=== PATIENT | female | born 2000 | race Two or more races ===

== ENCOUNTER → 2025-03-21 | Outpatient (CLI) | payer OTHER, SELFPAY ==
--- NOTE | 2025-03-21 | XR_ITS ---
Examination: Knee, right , 3 views Technique: Knee AP, lateral, oblique 3 views Date and time of exam: March 21, 2025 1209 hours INDICATIONS: Injury to the knee today, knee pain. FINDINGS: No fracture or dislocation No foreign body No significant joint narrowing IMPRESSION: No fracture or dislocation Small knee effusion
== END | disposition home or self-care (01) ==
PROVIDERS: Referring Provider Nurse Practitioner Family; Visit Provider Nurse Practitioner Family
DX: M25.461 Effusion, right knee (principal)
CPT/HCPCS: 73562